=== PATIENT | female | born 1935 | race Caucasian/White ===

== ENCOUNTER 2017-03-24 16:17 | Emergency (ER) | payer OTHER ==
[~2017-03-24] VITALS: Ht 162.6 cm; Wt 90.7 kg
[2017-03-24 16:48] LABS: Hematocrit 33.2 % (36.0-46.0); Hemoglobin 10.6 g/dL (12.2-16.2); Mean Corpuscular Hemoglobin 27.1 pg (28.0-32.0); Mean Corpuscular Hgb Conc. 31.8 g/dL (32.0-36.0); Mean Corpuscular Volume 85.1 fL (80.0-100.0); Mean Platelet Volume 8.1 fL (7.4-10.4); Platelet Count (auto) 440 10^3/uL (140-450); Red Cell Distribution Width 16.8 % (11.6-16.0); SUSPECT VIEW TRANSMISSION; White Blood Cell 16.7 10^3/uL (4.4-10.8)
[2017-03-24 16:54] LABS: Metamyelocytes % 0; Myelocytes % 0; Promyelocytes % 0; Reactive Lymphocytes 0
[2017-03-24] MEDS ORDERED: SODIUM CHLORIDE 0.9% 1,000 ML IV ONE (17:11)
[2017-03-24] MEDS ORDERED: METOCLOPRAMIDE HCL 5MG/ml INJ 2ml VIAL IV ONE (17:15)
[2017-03-24] MEDS ORDERED: NALBUPHINE HCL 10 MG/1ml INJECTION IV ONE ×3 (17:15→23:00)
[2017-03-24 17:19] LABS: Albumin 2.8 g/dL (3.4-5.0); Anion Gap 10 (5-15); Aspartate Aminotransferase 15 U/L (15-37); BUN/Creatinine Ratio 21.7; Blood Urea Nitrogen 25 mg/dL (7-18); Calcium 8.7 mg/dL (8.5-10.1); Carbon Dioxide 27 mmol/L (21-32); Chloride 98 mmol/L (98-107); GFR African American 58 mL/min; GFR Non-African American 48 mL/min; Glucose 204 mg/dL (74-106); Potassium 3.6 mmol/L (3.5-5.1); Sodium 135 mmol/L (136-145)
[2017-03-24 17:24] LABS: Alkaline Phosphatase 124 U/L (45-117); Bilirubin, Total 0.7 mg/dL (0.2-1.0); Total Protein 7.2 g/dL (6.4-8.2)
[2017-03-24 17:41] LABS: Platelet Estimate Adequate
[2017-03-24 18:14] LABS: Magnesium 1.8 mg/dL (1.6-2.6)
[2017-03-24] MEDS ORDERED: AMLO5TAB2 PO (18:34)
[2017-03-24] MEDS ORDERED: LISI40TA PO (18:34)
[2017-03-24] MEDS ORDERED: ATOR20TA PO (18:34)
[2017-03-24] MEDS ORDERED: HYDR25TA4 PO (18:34)
[2017-03-24] MEDS ORDERED: FAM20T PO (18:34)
[2017-03-24] MEDS ORDERED: LEVO112T4 PO (18:34)
[2017-03-24] MEDS ORDERED: METF-489 PO (18:34)
[2017-03-24 20:28] LABS: Urine Bilirubin Negative (Negative); Urine Blood Negative /uL (Negative); Urine Color Yellow (Yellow); Urine Glucose Normal (Normal); Urine Hyaline Cast MOD /lpf (0 - 2); Urine Ketone Negative (Negative); Urine Nitrite Negative (Negative); Urine RBC 51 /hpf (0 - 4); Urine Urobilinogen Normal (Negative); Urine pH 5.5 (5.0-8.0)
[2017-03-24] MEDS ORDERED: CEFTRIAXONE SODIUM 2 GM in D5W 5% 50 ML IV ONE (21:00)
[2017-03-24] MEDS ORDERED: cefTRIAXone 1GM/50ML D5W 100 ML IV ONE (21:32)
[2017-03-24] MEDS ORDERED: metroNIDAZOLE 500MG/100ML 100 ML IV ONE (23:00)
[2017-03-25 00:03] VITALS: BP 90/46
== END 2017-03-25 00:37 | disposition short-term general hospital (02) ==
LOC: EDBD 16:17 → ER 16:17
DX: K81.9 Cholecystitis, unspecified (principal); E11.9 Type 2 diabetes mellitus without complications; E78.5 Hyperlipidemia, unspecified; I10 Essential (primary) hypertension
CPT/HCPCS: 36415; 71010; 74176; 76705; 80053; 81001; 82962; 83690; 83735; 84443; 84484; 85007; 85027; 93005; 94761; 96361; 96365; 96375; 96376; 99285; J0696; J2300; J2765; J3490; J7030; 51702; J7060